=== PATIENT | female | born 1990 | race Two or more races ===

== ENCOUNTER 2018-05-20 10:15 | Inpatient (IN) | payer OTHER ==
[~2018-05-20] VITALS: Ht 157.5 cm; Wt 88.5 kg
[2018-06-01] MEDS ORDERED: PEPCID20 MG PO (01:26)
[2018-06-01] MEDS ORDERED: PRENATAL 19 TA1 EACH PO (01:28)
== END 2018-06-03 13:56 | disposition home or self-care (01) | DRG 807 ==
LOC: LDR 06-01 01:16 → SURG-SUITE 06-01 17:47 → OB/GYN 06-03 10:15 → SURG-SUITE 06-03 13:56
PROVIDERS: ADMIT Obstetrics & Gynecology
PROC: 10E0XZZ Delivery of Products of Conception, External Approach (ICD-10-PCS; principal; 2018-06-01)
PROC: 4A1HXCZ Monitoring of Products of Conception, Cardiac Rate, External Approach (ICD-10-PCS; 2018-06-01)
PROC: 0HQ9XZZ Repair Perineum Skin, External Approach (ICD-10-PCS; 2018-06-01)
PROC: 4A033R1 Measurement of Arterial Saturation, Peripheral, Percutaneous Approach (ICD-10-PCS; 2018-06-01)
DX: O70.0 First degree perineal laceration during delivery (principal); Z37.0 Single live birth; Z3A.39 39 weeks gestation of pregnancy

== ENCOUNTER 2018-05-24 10:46 | Outpatient (CLI) | payer OTHER | END 2018-05-24 11:27 | disposition home or self-care (01) | LOC: NST 10:46 | DX: Z34.83 Encounter for supervision of other normal pregnancy, third trimester (principal) ==

== ENCOUNTER 2018-05-31 09:12 | Outpatient (CLI) | payer OTHER ==
[2018-06-01] MEDS ORDERED: PEPCID20 MG PO (01:26)
[2018-06-01] MEDS ORDERED: PRENATAL 19 TA1 EACH PO (01:28)
== END 2018-05-31 09:52 | disposition home or self-care (01) ==
LOC: NST 09:12
DX: Z34.83 Encounter for supervision of other normal pregnancy, third trimester (principal)

== ENCOUNTER 2022-09-05 20:35 | Emergency (ER) | payer OTHER ==
[~2022-09-05] VITALS: Ht 157.5 cm; Wt 84.8 kg
[~2022-09-05 20:35] MED LIST: PEPCID20 MG PO; PRENATAL 19 TA1 EACH PO
[2022-09-05] MEDS ORDERED: TOPROL XL25 M1 PO (21:07)
== END 2022-09-06 02:58 | disposition home or self-care (01) ==
LOC: ER 20:35
DX: O46.8X1 Other antepartum hemorrhage, first trimester (principal); O42.911 Preterm premature rupture of membranes, unspecified as to length of time between rupture and onset of labor, first trimester; Z3A.09 9 weeks gestation of pregnancy; Z91.018 Allergy to other foods; Z91.041 Radiographic dye allergy status

== ENCOUNTER 2023-03-28 07:13 | Outpatient (CLI) | payer OTHER ==
[~2023-03-28 07:13] MED LIST changes: +TOPROL XL25 M1 PO
[2023-03-28 08:09] LABS: HEMATOCRIT 38.6 % (36.0-45.00); MEAN CELL VOLUME 83.5 fL (80.00-100.00); MEAN CORPUSCULAR HGB CONC 33.6 g/dl (32.0-36.0); PLATELET COUNT 251 K/uL (150-450); RED BLOOD COUNT 4.62 M/uL (4.00-6.00)
[2023-03-28 08:38] LABS: INR < 0.93; PARTIAL THROMBOPLASTIN TIME 24.6 SECONDS (22.0-34.0); PROTHROMBIN TIME 9.4 SECONDS (9.0-11.5)
[2023-03-28 08:39] LABS: ALBUMIN 2.7 gm/dL (3.4-5.0); BILIRUBIN TOTAL 0.29 mg/dL (0.3-1.2); CALCIUM 9.4 mg/dL (8.5-10.1); CREATININE SERUM 0.58 mg/dL (0.55-1.02); GLOBULINA 4.1 G/DL (2.4-3.5); POTASSIUM 4.11 mEq/L (3.5-5.1); TOTAL PROTEIN 6.8 gm/dL (6.4-8.2)
[2023-03-28] MEDS ORDERED: ZYRTEC10 M3 PO (12:59)
[2023-03-28] MEDS ORDERED: PEPCID AC20 MG PO (12:59)
[2023-03-28] MEDS ORDERED: PRENATABS RX T1 EACH PO (13:00)
== END 2023-03-28 13:05 | disposition still patient (30) ==
LOC: OBS/DEL 07:13
PROVIDERS: ATTEND Obstetrics & Gynecology Gynecology
DX: O26.893 Other specified pregnancy related conditions, third trimester (principal); Z3A.38 38 weeks gestation of pregnancy; Z20.822 Contact with and (suspected) exposure to COVID-19

== ENCOUNTER 2023-03-28 12:37 | Inpatient (IN) | payer OTHER ==
[~2023-03-28] VITALS: Ht 157.5 cm; Wt 87.1 kg
[2023-03-28] MEDS ORDERED: ZYRTEC10 M3 PO (12:59)
[2023-03-28] MEDS ORDERED: PEPCID AC20 MG PO (12:59)
[2023-03-28] MEDS ORDERED: PRENATABS RX T1 EACH PO (13:00)
[2023-03-29 07:41] LABS: HEMATOCRIT 36.8 % (36.0-45.00); HEMOGLOBIN 12.2 g/dL (12.0-15.00); MEAN CELL VOLUME 84.4 fL (80.00-100.00); MEAN CORPUSCULAR HEMOGLOBIN 27.9 pg (27.00-32.0); MEAN CORPUSCULAR HGB CONC 33.1 g/dl (32.0-36.0); PLATELET COUNT 225 K/uL (150-450); RED BLOOD COUNT 4.36 M/uL (4.00-6.00); RED CELL DISTRIBUTION WIDTH 14.1 % (11.5-14.5)
== END 2023-03-30 11:30 | disposition home or self-care (01) | DRG 807 ==
LOC: OB/GYN 12:37 → LDR 12:37 → OB/GYN 14:30 → SURG 03-29 14:30 → OB/GYN 03-30 11:30
PROVIDERS: Obstetrics & Gynecology Gynecology; ADMIT Obstetrics & Gynecology Maternal & Fetal Medicine; ATTEND Obstetrics & Gynecology Maternal & Fetal Medicine
PROC: 10E0XZZ Delivery of Products of Conception, External Approach (ICD-10-PCS; principal; 2023-03-28)
PROC: 4A1HXCZ Monitoring of Products of Conception, Cardiac Rate, External Approach (ICD-10-PCS; 2023-03-28)
DX: O80 Encounter for full-term uncomplicated delivery (principal); Z37.0 Single live birth; Z3A.38 38 weeks gestation of pregnancy; Z20.822 Contact with and (suspected) exposure to COVID-19